=== PATIENT | male | born 1955 | race Caucasian/White ===

== ENCOUNTER → 2025-09-01 10:44 | Outpatient (REF) | payer MEDICARE, OTHER, SELFPAY | LOC: RAD 10:44 | PROVIDERS: ATTENDING PHYSICIAN Internal Medicine Geriatric Medicine; FAMILY PHYSICIAN Family Medicine | DX: H20.029 Recurrent acute iridocyclitis, unspecified eye (principal) | CPT/HCPCS: 71046 ==